=== PATIENT | female | born 1985 | race Caucasian/White ===

== ENCOUNTER → 2016-04-14 | Outpatient (CLI) | payer BC ==
[~2016-04-14] MED LIST: IBU600 MG PO; PERCOCET 325 MG1 TA2 PO; ZANTAC150 MG PO
[2016-04-14 12:50] LABS: BASO # 0.1 (0.0-0.2); BASO % 0.7 % (0.0-2.0); EOS # 0.1 (0.0-0.7); EOS % 1.1 % (0-4.0); GRAN # 6.4 (1.4-6.5); GRAN % 68.3 % (42.2-75.2); HEMOGLOBIN 13.1 g/dl (12.5-16.0); LYMPH # 2.4 (1.2-3.4); LYMPH % 25.5 % (20.0-51.0); MEAN CELL VOLUME 90 fl (80.0-100.0); MEAN CORPUSCULAR HEMOGLOBIN 31 pg (27.0-31.0); MEAN CORPUSCULAR HGB CONC 35 g/dl (33.0-37.0); MEAN PLATELET VOLUME 10.8 fl (7.4-10.4); MONO # 0.4 (0.1-0.6); MONO % 4.1 % (1.7-9.3); PLATELET COUNT 282 K/mm3 (130-400); RED BLOOD COUNT 4.22 M/mm3 (4.10-5.30); WHITE BLOOD COUNT 9.4 K/mm3 (4.8-10.8)
[2016-04-14 13:02] LABS: ADJUSTED CALCIUM 9.4 mg/dL (8.4-10.2); ALANINE AMINOTRANSFERASE 40 U/L (9-52); ALBUMIN 4.7 gm/dL (3.5-5.0); ALKALINE PHOSPHATASE 49 U/L (50-136); ANION GAP 14 mmol/L (7-16); BILIRUBIN,TOTAL 0.8 mg/dL (0.0-1.0); BLOOD UREA NITROGEN 9 mg/dL (7-17); CARBON DIOXIDE 24 mmol/L (22-30); CHLORIDE 101 mmol/L (98-107); CREATININE, serum 0.74 mg/dL (0.52-1.25); GLUCOSE 91 mg/dL (74-106); POTASSIUM 4.2 mmol/L (3.4-5.0); SODIUM 139 mmol/L (137-145); TOTAL PROTEIN 8.4 gm/dL (6.4-8.2)
[2016-04-14 13:15] LABS: TROPONIN-I < 0.012 ng/mL (0.000-0.034)
== END ==
LOC: COL.LAB 12:00
PROVIDERS: Internal Medicine
DX: F41.8 Other specified anxiety disorders (principal); R06.02 Shortness of breath; R07.89 Other chest pain

== ENCOUNTER → 2017-03-08 | Outpatient (CLI) | payer BC | LOC: MHCPAIN 14:27 | DX: G89.29 Other chronic pain (principal); M79.1 Myalgia | CPT/HCPCS: G0463 ==

== ENCOUNTER 2017-08-03 08:52 | Inpatient (IN) | payer BC ==
[~2017-08-03] VITALS: Ht 177.8 cm; Wt 124.5 kg
[2017-08-03] VITALS (58 sets, daily range): BP systolic 103–145; BP diastolic 54–82; PULSE 74–104; TEMP 98.3–99.2
[2017-08-03] MEDS ORDERED: PRENATAL1 TA7 PO (09:06)
[2017-08-03] MEDS ORDERED: TYLENOL 500MG500 MG PO (09:06)
[2017-08-03] MEDS ORDERED: NATURAL IRON65 MG (09:07)
[2017-08-03 09:33] LABS: HEMOGLOBIN 11.5 g/dl (12.5-16.0); MEAN CELL VOLUME 88 fl (80.0-100.0); MEAN CORPUSCULAR HEMOGLOBIN 30 pg (27.0-31.0); MEAN CORPUSCULAR HGB CONC 34 g/dl (33.0-37.0); MEAN PLATELET VOLUME 10.9 fl (7.4-10.4); PLATELET COUNT 212 K/mm3 (130-400); RED BLOOD COUNT 3.81 M/mm3 (4.10-5.30); REDCELL DISTRIBUTION WIDTH-CV 12.5 % (11.5-14.5)
[2017-08-03 09:35] LABS: HEMATOCRIT 33.4 % (37.0-47.0)
[2017-08-03 10:33] LABS: BAND 1 % (0-10); LYMPHOCYTE 18 % (20.0-51.0); NEUTROPHILS 79 % (42.0-75.2); NUCLEATED RED BLOOD CELL 1 (0-6); PLATELET ESTIMATE NORMAL (NORMAL)
[2017-08-04 00:48] VITALS: BP 112/74; PULSE 89; TEMP 98
[2017-08-04 02:45] VITALS: BP 111/66; PULSE 82; TEMP 98.4
[2017-08-04 07:30] VITALS: BP 100/65; PULSE 94; TEMP 98.1
[2017-08-04] MEDS ORDERED: PERCOCET 325 MG1 TA2 PO (07:32)
[2017-08-04] MEDS ORDERED: MOTRIN 800800 MG/TAB PO (07:32)
[2017-08-04 12:10] VITALS: BP 118/74; PULSE 89; TEMP 97.6
[2017-08-04 17:00] VITALS: BP 114/74; PULSE 90; TEMP 97.4
[2017-08-04 19:15] VITALS: BP 106/66; PULSE 97
[2017-08-05 07:55] VITALS: BP 120/70; PULSE 88; TEMP 98
== END 2017-08-05 14:40 | disposition home or self-care (01) | DRG 775 ==
LOC: LDR 08:52 → OB 08:52 → LDR 08-14 05:44
PROVIDERS: Obstetrics & Gynecology
PROC: 10E0XZZ Delivery of Products of Conception, External Approach (ICD-10-PCS; principal; 2017-08-03)
PROC: 0KQM0ZZ Repair Perineum Muscle, Open Approach (ICD-10-PCS; 2017-08-03)
PROC: 10907ZC Drainage of Amniotic Fluid, Therapeutic from Products of Conception, Via Natural or Artificial Opening (ICD-10-PCS; 2017-08-03)
PROC: 3E033VJ Introduction of Other Hormone into Peripheral Vein, Percutaneous Approach (ICD-10-PCS; 2017-08-03)
DX: O13.4 Gestational [pregnancy-induced] hypertension without significant proteinuria, complicating childbirth (principal); O70.1 Second degree perineal laceration during delivery; Z37.0 Single live birth; Z3A.39 39 weeks gestation of pregnancy
CPT/HCPCS: J2590; J7120

== ENCOUNTER → 2018-05-15 | Outpatient (CLI) | payer BC, OTHER ==
[~2018-05-15] MED LIST changes: +MOTRIN 800800 MG/TAB PO; +NATURAL IRON65 MG; +PRENATAL1 TA7 PO; +TYLENOL 500MG500 MG PO
== END ==
LOC: MHCPAIN 11:01
DX: G89.29 Other chronic pain (principal); M79.18 Myalgia, other site; G95.0 Syringomyelia and syringobulbia
CPT/HCPCS: G0463

== ENCOUNTER → 2018-05-22 | Outpatient (CLI) | payer BC, OTHER | LOC: MHCPAIN 12:52 | DX: M79.18 Myalgia, other site (principal) | CPT/HCPCS: J1040 ==